=== PATIENT | male | born 1970 | race Hispanic/Latino ===

== ENCOUNTER 2022-01-19 11:48 | Emergency (ER) | payer OTHER ==
[2022-01-19] VITALS (20 sets, daily range): BP systolic 150–203; BP diastolic 83–140
[~2022-01-19] VITALS: Ht 157.5 cm; Wt 73.0 kg
[2022-01-19 13:00] LABS: HEMOGLOBIN 14.9 g/dl (14.0-18.0); IMMATURE GRANULOCYTES 0.2 % (0.0-5.0); MEAN CELL VOLUME 91.9 fL CALC (80.0-100.0); MEAN CORPUSCULAR HGB 31.8 pG CALC (26.0-32.0); MEAN CORPUSCULAR HGB CONC 34.7 g/dL CAL (32.0-36.0); NEUT# 7.82 thou/uL (1.82-7.42); RED BLOOD COUNT 4.68 mill/uL (4.70-6.10); RED CELL DISTRI WIDTH 12.7 % (11.5-15.5)
[2022-01-19 13:19] LABS: ALBUMIN 4.7 g/dL (3.2-5.0); ALKALINE PHOSPHATASE 129 u/l (38-126); ANION GAP 19 (6-22 (CALC)); BILIRUBIN, TOTAL 0.4 mg/dL (0.0-1.4); BUN 12 mg/dL (9-20); BUN/CREATININE RATIO 14 (12-20 (CALC)); CARBON DIOXIDE 21 mmol/l (22-30); CHLORIDE 104 mmol/l (95-108); CPK 183 u/l (52-200); CREATININE 0.9 mg/dL (0.7-1.3); GFR FOR AFR.AMER. > 60 ML/MIN (>=60 (CALC)); GFR OTHER RACES > 60 ML/MIN (>=60 (CALC)); POTASSIUM 3.6 mmol/l (3.5-5.1); SGOT/AST 43 u/l (17-59); SODIUM 140 mmol/l (137-146); TOTAL PROTEIN 8.1 g/dL (6.3-8.2)
[2022-01-19 13:30] LABS: MYOGLOBIN 37 ng/mL (0 - 121)
[2022-01-19] MEDS ORDERED: HYDROCO/APAP1 TA9 PO (15:24)
[2022-01-19] MEDS ORDERED: NAPROXEN500 MG PO (15:24)
[2022-01-19] MEDS ORDERED: AMLODIPINE BES2.5 MG PO (15:24)
== END 2022-01-19 17:15 | disposition home or self-care (01) | DRG 918 ==
LOC: ED 11:48
PROVIDERS: Nurse Practitioner
DX: T63.481A Toxic effect of venom of other arthropod, accidental (unintentional), initial encounter (principal); E86.0 Dehydration; I10 Essential (primary) hypertension